=== PATIENT | male | born 1985 | race Caucasian/White ===

== ENCOUNTER 2021-07-07 13:36 | Emergency (ER) | payer OTHER ==
[~2021-07-07] VITALS: Ht 175.3 cm; Wt 108.9 kg
[2021-07-07 14:34] LABS: URINE BILIRUBIN NEGATIVE (Negative); URINE BLOOD TRACE (Negative); URINE CLARITY CLEAR; URINE COLOR YELLOW; URINE GLUCOSE-RANDOM* 3+ (Negative); URINE KETONES NEGATIVE (Negative); URINE LEUKOCYTES-REFLEX NEGATIVE (Negative); URINE NITRITE-REFLEX NEGATIVE (Negative); URINE PROTEIN (DIPSTICK) NEGATIVE (Negative); URINE SPECIFIC GRAVITY >= 1.030 (1.005-1.035); URINE UROBILINOGEN 0.2 E.U./dl (0.2-1.0)
[2021-07-07 15:22] LABS: ABSOLUTE NEUTROPHILS 5.6 thou/uL (1.4-8.2); BASOPHILS 0.9 % (0.0-2.0); EOSINOPHILS 5.5 % (0.0-3.0); HEMATOCRIT 47.4 % (42.0-52.0); HEMOGLOBIN 16.5 gm/dL (14.0-18.0); LYMPHOCYTES 21.7 % (24.0-44.0); MCH 30.2 pg (26.0-34.0); MCHC 34.8 g/dL (28.0-37.0); MCV 86.7 fL (80.0-100.0); PLATELET COUNT 255 thou/uL (150-400); POLYS 66.9 % (36.0-66.0); RBC 5.47 mil/uL (4.50-6.00); RDW 12.8 % (10.5-14.5); WBC 8.3 thou/uL (4.0-11.0)
[2021-07-07 15:27] LABS: CALCIUM 9.2 mg/dL (8.5-10.1); CREATININE 0.8 mg/dL (0.7-1.3); POTASSIUM 4.3 mmol/L (3.5-5.1)
[2021-07-07 15:33] LABS: ALBUMIN 3.7 g/dL (3.4-5.0); TOTAL BILIRUBIN 0.7 mg/dL (0.2-1.0); TOTAL PROTEIN 7.5 g/dL (6.4-8.2)
[2021-07-07] MEDS ORDERED: ZOFRAN ODT4 MG PO (16:31)
[2021-07-07 16:35] VITALS: BP 142/101
== END 2021-07-07 16:49 | disposition home or self-care (01) ==
LOC: ER 13:36
PROVIDERS: Nurse Practitioner
DX: A08.4 Viral intestinal infection, unspecified (principal); Z20.822 Contact with and (suspected) exposure to COVID-19; E11.9 Type 2 diabetes mellitus without complications

== ENCOUNTER 2021-07-23 19:52 | Emergency (ER) | payer OTHER ==
[~2021-07-23] VITALS: Ht 177.8 cm; Wt 108.9 kg
[~2021-07-23 19:52] MED LIST: ZOFRAN ODT4 MG PO
[2021-07-23 19:58] VITALS: BP 175/98
[2021-07-23] MEDS ORDERED: METFORMIN HCL500 M3 PO (21:08)
[2021-07-23] MEDS ORDERED: CEPHALEXIN500 MG PO (21:08)
[2021-07-24] MEDS ORDERED: CLOTRIMAZOLE TOP (15:11)
[2021-07-24] MEDS ORDERED: NYAMYC15 GM TOP (15:11)
== END 2021-07-23 21:40 | disposition home or self-care (01) ==
LOC: ER 19:52
DX: S90.822A Blister (nonthermal), left foot, initial encounter (principal); M79.7 Fibromyalgia; E11.9 Type 2 diabetes mellitus without complications; Z90.89 Acquired absence of other organs; X58.XXXA Exposure to other specified factors, initial encounter; Y93.89 Activity, other specified; Y92.89 Other specified places as the place of occurrence of the external cause; Y99.8 Other external cause status

== ENCOUNTER 2021-07-24 14:32 | Emergency (ER) | payer OTHER ==
[~2021-07-24] VITALS: Ht 177.8 cm; Wt 108.9 kg
[~2021-07-24 14:32] MED LIST changes: +CEPHALEXIN500 MG PO; +METFORMIN HCL500 M3 PO
[2021-07-24] MEDS ORDERED: CLOTRIMAZOLE TOP (15:11)
[2021-07-24] MEDS ORDERED: NYAMYC15 GM TOP (15:11)
[2021-07-24 15:48] VITALS: BP 132/94
== END 2021-07-24 15:48 | disposition home or self-care (01) ==
LOC: ER 14:32
DX: S91.302A Unspecified open wound, left foot, initial encounter (principal); E11.9 Type 2 diabetes mellitus without complications; M79.7 Fibromyalgia; Z90.49 Acquired absence of other specified parts of digestive tract; Z79.84 Long term (current) use of oral hypoglycemic drugs; Z79.899 Other long term (current) drug therapy; X58.XXXA Exposure to other specified factors, initial encounter; Y93.89 Activity, other specified; Y92.89 Other specified places as the place of occurrence of the external cause; Y99.8 Other external cause status

== ENCOUNTER 2021-08-09 01:56 | Emergency (ER) | payer OTHER ==
[~2021-08-09] VITALS: Ht 175.3 cm; Wt 104.3 kg
[~2021-08-09 01:56] MED LIST changes: +CLOTRIMAZOLE TOP; +NYAMYC15 GM TOP
[2021-08-09 02:06] VITALS: BP 190/121
[2021-08-09 02:51] LABS: ABSOLUTE NEUTROPHILS 5.3 thou/uL (1.4-8.2); BASOPHILS 1.4 % (0.0-2.0); EOSINOPHILS 4.8 % (0.0-3.0); HEMATOCRIT 47.8 % (42.0-52.0); HEMOGLOBIN 16.7 gm/dL (14.0-18.0); LYMPHOCYTES 31.3 % (24.0-44.0); MCH 29.4 pg (26.0-34.0); MCHC 34.9 g/dL (28.0-37.0); MCV 84.3 fL (80.0-100.0); MONOCYTES 5.7 % (1.0-8.0); PLATELET COUNT 309 thou/uL (150-400); POLYS 56.8 % (36.0-66.0); RBC 5.67 mil/uL (4.50-6.00); RDW 12.7 % (10.5-14.5); WBC 9.3 thou/uL (4.0-11.0)
[2021-08-09 03:00] LABS: CALCIUM 9.1 mg/dL (8.5-10.1); CREATININE 0.9 mg/dL (0.7-1.3)
[2021-08-09 03:01] LABS: POTASSIUM 4.3 mmol/L (3.5-5.1)
== END 2021-08-09 03:20 | disposition home or self-care (01) ==
LOC: ER 01:56
PROVIDERS: Student in an Organized Health Care Education/Training Program
DX: T33.822A Superficial frostbite of left foot, initial encounter (principal); E11.9 Type 2 diabetes mellitus without complications; M79.7 Fibromyalgia; Z90.49 Acquired absence of other specified parts of digestive tract; X31.XXXA Exposure to excessive natural cold, initial encounter; Y93.89 Activity, other specified; Y92.89 Other specified places as the place of occurrence of the external cause; Y99.8 Other external cause status